=== PATIENT | female | born 1945 | race Caucasian/White ===

== ENCOUNTER 2016-03-30 10:30 | Outpatient (RCR) | payer MEDICARE, BC ==
[2015-02-01 14:15] VITALS: BP 113/61
[~2016-03-30 10:30] MED LIST: ACTOS 15MG TAB15 MG PO; ALLERGY RELIEF10 M3 PO; CELEXA20 M1 PO; CRANBERRY1 CAP PO; DIABETIC MED; DIPHENHYDRAMINE25 MG PO; FLOMAX; HYDROCHLOR50 MG PO; LISINOPRIL10 MG PO; MECLIZINE25 MG PO; PIOGLITAZONE15 MG PO; PRILOSEC 20MG20 MG PO; PRILOSEC10 MG PO; ULTRAM50 MG PO; VIBRAMYCIN100 MG PO; VITAMIN D PO; VITAMIN D32000 I1 PO; XANAX1 M1 PO; XANAX1 MG PO; [UNRECOGNIZED DRUG - OTHER] PO
[2016-06-26] MEDS ORDERED: CYCLOBENZAPRINE10 M1 PO (20:46)
[2016-06-26] MEDS ORDERED: ACETAMINOPHEN-H1 TA2 PO (20:55)
[2016-06-26] MEDS ORDERED: LOPRESSOR 225 MG/TAB PO (20:56)
[2016-06-26] MEDS ORDERED: CLOPIDOGREL75 M1 PO (20:56)
[2016-06-26] MEDS ORDERED: PIOGLITAZONE HC30 MG PO (20:57)
[2016-06-26] MEDS ORDERED: FUROSEMIDE20 MG PO (20:57)
[2016-06-26] MEDS ORDERED: OMEPRAZOLE D/R20 MG PO (20:58)
[2016-06-26] MEDS ORDERED: FLOMAX 0.40.4 MG/CAP PO (20:58)
[2016-06-26] MEDS ORDERED: ALPRAZOLAM1 MG PO (20:59)
[2016-06-26] MEDS ORDERED: NITROGLYCERIN0.4 M1 SL (21:00)
[2016-06-26] MEDS ORDERED: LISINOPRIL5 MG PO (21:01)
[2016-06-26] MEDS ORDERED: CELEXA 20MG20 MG/TA1 PO (21:01)
[2016-06-26] MEDS ORDERED: MECLIZINE PO (21:05)
== END 2016-05-17 09:22 | disposition home or self-care (01) ==
LOC: PT 10:30
DX: M75.41 Impingement syndrome of right shoulder (principal)

== ENCOUNTER → 2016-04-17 | Outpatient (CLI) | payer MEDICARE, BC ==
[~2016-04-17] MED LIST changes: +ACETAMINOPHEN-H1 TA2 PO; +ALPRAZOLAM1 MG PO; +ASPIRIN 32325 MG/TAB PO; +ATORVASTATIN CA40 MG PO; +CELEXA 20MG20 MG/TA1 PO; +CLOPIDOGREL PO; +CLOPIDOGREL75 M1 PO; +CRANBERRY450 MG PO; +CYCLOBENZAPRINE10 M1 PO; +FERROUS SU325 MG/TAB PO; +FLOMAX 0.40.4 MG/CAP PO; +FUROSEMIDE20 MG PO; +LISINOPRIL5 MG PO; +LOPRESSOR 225 MG/TAB PO; +MACROBID 100 M100 MG PO; +MECLIZINE PO; +NATURE'S BOUNTY1 TAB PO; +NITROGLYCERIN0.4 M1 SL; +OMEPRAZOLE D/R20 MG PO; +PIOGLITAZONE HC30 MG PO
== END ==
LOC: LAB 10:55
DX: N76.0 Acute vaginitis (principal)
CPT/HCPCS: Q0111

== ENCOUNTER → 2016-05-15 | Outpatient (CLI) | payer MEDICARE, BC | LOC: LAB 09:03 | DX: N30.01 Acute cystitis with hematuria (principal) ==

== ENCOUNTER → 2016-06-09 | Outpatient (CLI) | payer MEDICARE, BC | LOC: LAB 09:53 | DX: R30.0 Dysuria (principal) ==

== ENCOUNTER → 2016-06-26 | Outpatient (CLI) | payer MEDICARE, BC ==
[2016-06-26 13:40] VITALS: BP 115/62
== END ==
LOC: AMSURD 13:12
DX: Z01.818 Encounter for other preprocedural examination (principal); M25.561 Pain in right knee

== ENCOUNTER → 2016-06-29 | Outpatient (CLI) | payer MEDICARE, BC | LOC: LAB 11:50 | DX: E11.9 Type 2 diabetes mellitus without complications (principal); E55.9 Vitamin D deficiency, unspecified; I25.10 Atherosclerotic heart disease of native coronary artery without angina pectoris; G47.33 Obstructive sleep apnea (adult) (pediatric); M17.9 Osteoarthritis of knee, unspecified ==

== ENCOUNTER → 2016-07-31 | Outpatient (CLI) | payer MEDICARE, BC ==
[2016-06-26 13:40] VITALS: BP 115/62
== END ==
LOC: PT 08:05

== ENCOUNTER → 2016-08-01 | Outpatient (CLI) | payer MEDICARE, BC ==
[2016-06-26 13:40] VITALS: BP 115/62
== END ==
LOC: LAB 09:08
DX: R30.0 Dysuria (principal)

== ENCOUNTER → 2016-08-08 | Outpatient (CLI) | payer MEDICARE, BC ==
[2016-06-26 13:40] VITALS: BP 115/62
== END ==
LOC: RAD 09:38 → LAB 09:38
DX: Z01.811 Encounter for preprocedural respiratory examination (principal); Z01.812 Encounter for preprocedural laboratory examination; M17.0 Bilateral primary osteoarthritis of knee; Z01.818 Encounter for other preprocedural examination

== ENCOUNTER 2016-08-18 16:47 | Inpatient (IN) | payer MEDICARE, BC ==
[~2016-08-18] VITALS: Ht 152 cm; Wt 96.0 kg
[~2016-08-18 16:47] MED LIST changes: -ASPIRIN 32325 MG/TAB PO; -ATORVASTATIN CA40 MG PO; -CLOPIDOGREL PO; -CRANBERRY450 MG PO; -FERROUS SU325 MG/TAB PO; -MACROBID 100 M100 MG PO; -NATURE'S BOUNTY1 TAB PO
[2016-08-20] MEDS ORDERED: CRANBERRY450 MG PO (15:03)
[2016-08-20 15:04] VITALS: BP 163/82
[2016-08-20] MEDS ORDERED: NATURE'S BOUNTY1 TAB PO (15:04)
[2016-08-20] MEDS ORDERED: ATORVASTATIN CA40 MG PO (15:06)
[2016-08-20] MEDS ORDERED: MACROBID 100 M100 MG PO (15:08)
[2016-08-20 18:19] VITALS: BP 144/80
[2016-08-21 06:20] VITALS: BP 145/78
[2016-08-21 06:31] VITALS: BP 145/78
[2016-08-21 18:07] VITALS: BP 135/72
[2016-08-22 06:24] VITALS: BP 135/75
[2016-08-22 18:39] VITALS: BP 151/79
[2016-08-23 06:20] VITALS: BP 151/73
[2016-08-23 18:09] VITALS: BP 142/68
[2016-08-24 06:19] VITALS: BP 136/78
[2016-08-24 18:08] VITALS: BP 143/73
[2016-08-25 06:20] VITALS: BP 130/70
[2016-08-25] MEDS ORDERED: FLOMAX 0.40.4 MG/CAP PO (11:34)
[2016-08-25] MEDS ORDERED: FERROUS SU325 MG/TAB PO (11:35)
[2016-08-25] MEDS ORDERED: CLOPIDOGREL PO (11:36)
[2016-08-25] MEDS ORDERED: ASPIRIN 32325 MG/TAB PO (11:37)
[2016-08-25] MEDS ORDERED: ACETAMINOPHEN-H1 TA2 PO (11:38)
[2016-08-25 18:00] VITALS: BP 129/59
[2016-08-26 06:20] VITALS: BP 124/77
[2016-08-26 18:37] VITALS: BP 165/81
[2016-08-27 06:05] VITALS: BP 119/57
== END 2016-08-27 08:30 | disposition home health service (06) | DRG 560 ==
LOC: MED/SURG 16:47
PROVIDERS: ADMIT Family Medicine
DX: Z47.1 Aftercare following joint replacement surgery (principal); T81.31XD Disruption of external operation (surgical) wound, not elsewhere classified, subsequent encounter; Z96.651 Presence of right artificial knee joint; D62 Acute posthemorrhagic anemia; N39.0 Urinary tract infection, site not specified; E87.1 Hypo-osmolality and hyponatremia; E11.9 Type 2 diabetes mellitus without complications; R53.81 Other malaise; W06.XXXD Fall from bed, subsequent encounter
CPT/HCPCS: A4500; J7512

== ENCOUNTER → 2016-09-07 | Outpatient (CLI) | payer MEDICARE, BC ==
[2016-08-27 06:05] VITALS: BP 119/57
[~2016-09-07] MED LIST changes: +ASPIRIN 32325 MG/TAB PO; +ATORVASTATIN CA40 MG PO; +CLOPIDOGREL PO; +CRANBERRY450 MG PO; +FERROUS SU325 MG/TAB PO; +MACROBID 100 M100 MG PO; +NATURE'S BOUNTY1 TAB PO
== END ==
LOC: LAB 09:23
DX: I10 Essential (primary) hypertension (principal)

== ENCOUNTER 2016-10-04 14:00 | Outpatient (RCR) | payer MEDICARE, BC | END 2016-10-09 15:43 | disposition home or self-care (01) | LOC: PT 14:00 | DX: Z47.1 Aftercare following joint replacement surgery (principal); Z96.651 Presence of right artificial knee joint ==

== ENCOUNTER → 2016-10-30 | Outpatient (CLI) | payer MEDICARE, BC | LOC: LAB 10:15 | DX: R20.2 Paresthesia of skin (principal); E11.9 Type 2 diabetes mellitus without complications ==

== ENCOUNTER → 2016-11-03 | Outpatient (CLI) | payer MEDICARE, BC | LOC: LAB 09:47 | DX: E11.9 Type 2 diabetes mellitus without complications (principal); R20.2 Paresthesia of skin ==

== ENCOUNTER → 2017-01-30 | Outpatient (CLI) | payer MEDICARE, BC ==
[~2017-01-30] MED LIST changes: +COLACE100 M1 PO; +PROTONIX20 M1 PO
[2017-01-30 14:40] LABS: CLUE CELLS PRESENT (Not Observd)
[2017-01-30 14:58] LABS: URINE APPEARANCE CLEAR; URINE COLOR YELLOW
[2017-01-30 14:59] LABS: PH-URINE 5.5 (5.0 - 8.0); URINE BILIRUBIN NEGATIVE (NEGATIVE); URINE BLOOD NEGATIVE (NEGATIVE); URINE GLUCOSE NEGATIVE (NEGATIVE); URINE KETONE NEGATIVE (NEGATIVE); URINE LEUKOCYTE ESTERASE NEGATIVE (NEGATIVE); URINE NITRATE NEGATIVE (NEGATIVE); URINE PROTEIN(semi-quant) NEGATIVE (NEGATIVE); URINE UROBILINOGEN NORMAL (NORMAL)
== END ==
LOC: LAB 14:27
PROVIDERS: Nurse Practitioner Family
DX: R39.15 Urgency of urination (principal); N95.2 Postmenopausal atrophic vaginitis
CPT/HCPCS: Q0111

== ENCOUNTER 2017-02-12 09:50 | Emergency (ER) | payer MEDICARE, BC ==
[~2017-02-12] VITALS: Ht 154.9 cm; Wt 100.8 kg
[~2017-02-12 09:50] MED LIST changes: -COLACE100 M1 PO; -PROTONIX20 M1 PO
[2017-02-12] MEDS ORDERED: ALPRAZOLAM1 MG PO (10:33)
[2017-02-12] MEDS ORDERED: PROTONIX20 M1 PO (10:34)
[2017-02-12] MEDS ORDERED: COLACE100 M1 PO (10:35)
[2017-02-12 10:42] LABS: ALBUMIN 3.4 g/dL (3.5-5.0); BUN/CREATININE RATIO 22.9 (6.0-26.0); POTASSIUM 4.7 mmol/L (3.6-5.0); TOTAL BILIRUBIN 0.6 mg/dL (0.2-1.3); TOTAL PROTEIN 6.2 g/dL (6.3-8.2)
[2017-02-12 10:50] LABS: CKMB ISOENZYME 2.3 ng/mL (0.6-3.5)
[2017-02-12 10:55] LABS: TROPONIN-I < 0.03 ng/mL (0.00-0.06)
[2017-02-12 11:08] LABS: URINE APPEARANCE CLEAR; URINE BILIRUBIN NEGATIVE (NEGATIVE); URINE BLOOD NEGATIVE (NEGATIVE); URINE COLOR YELLOW; URINE GLUCOSE NEGATIVE (NEGATIVE); URINE KETONE NEGATIVE (NEGATIVE); URINE LEUKOCYTE ESTERASE NEGATIVE (NEGATIVE); URINE MUCUS PRESENT (NOT PRESENT); URINE NITRATE NEGATIVE (NEGATIVE); URINE PROTEIN(semi-quant) NEGATIVE (NEGATIVE); URINE UROBILINOGEN NORMAL (NORMAL); URINE WBC 0-1 /hpf (0-3)
[2017-02-12 11:16] LABS: EOS # 0.2 (0.04-0.40); EOS % 4.5 % (1.0-5.0); HEMATOCRIT 35.5 % (37.0-47.0); LYMPH# 1.2 (1.50-4.00); MEAN CELL VOLUME 96 fl (78-100); MEAN CORPUSCULAR HEMOGLOBIN 30 pg (27-31); MEAN CORPUSCULAR HGB CONC 31 g/dL (33-37); MEAN PLATELET VOLUME 10.6 fl (7.4-10.4); MONO # 0.4 (0.20-0.80); NEU # 2.7 (1.40-6.50); PLATELET COUNT 193 K/mm3 (130-400); RED BLOOD COUNT 3.71 M/mm3 (4.10-5.30); RED CELL DISTRIBUTION WIDTH 14.1 % (11.5-14.5); WHITE BLOOD COUNT 4.5 K/mm3 (4.8-10.8)
[2017-02-12 16:41] VITALS: BP 135/74
== END 2017-02-12 16:40 | disposition home or self-care (01) ==
LOC: ED 09:50
PROVIDERS: Nurse Practitioner Primary Care
DX: F43.9 Reaction to severe stress, unspecified (principal); R53.83 Other fatigue; I11.0 Hypertensive heart disease with heart failure; I50.9 Heart failure, unspecified; K21.9 Gastro-esophageal reflux disease without esophagitis; N39.0 Urinary tract infection, site not specified; R29.6 Repeated falls; Z95.5 Presence of coronary angioplasty implant and graft; Z96.653 Presence of artificial knee joint, bilateral; Z98.1 Arthrodesis status; Z79.02 Long term (current) use of antithrombotics/antiplatelets; Z79.82 Long term (current) use of aspirin; Z88.5 Allergy status to narcotic agent; Z88.2 Allergy status to sulfonamides
CPT/HCPCS: A4353; A9585

== ENCOUNTER → 2017-04-16 | Outpatient (CLI) | payer MEDICARE, BC ==
[~2017-04-16] MED LIST changes: +COLACE100 M1 PO; +PROTONIX20 M1 PO
[2017-04-16 10:17] LABS: HEMATOCRIT 37.8 % (37.0-47.0); HEMOGLOBIN 11.5 g/dL (12.5-16.0); MEAN CELL VOLUME 94 fl (78-100); MEAN CORPUSCULAR HEMOGLOBIN 29 pg (27-31); MEAN CORPUSCULAR HGB CONC 30 g/dL (33-37); MEAN PLATELET VOLUME 10.6 fl (7.4-10.4); PLATELET COUNT 167 K/mm3 (130-400); RED BLOOD COUNT 4.03 M/mm3 (4.10-5.30); RED CELL DISTRIBUTION WIDTH 13.6 % (11.5-14.5); WHITE BLOOD COUNT 3.6 K/mm3 (4.8-10.8)
[2017-04-16 11:21] LABS: BUN/CREATININE RATIO 30.3 (6.0-26.0); CALCIUM 9.3 mg/dL (8.4-10.2); POTASSIUM 4.4 mmol/L (3.6-5.0); TOTAL BILIRUBIN 0.5 mg/dL (0.2-1.3); TOTAL PROTEIN 6.9 g/dL (6.3-8.2)
[2017-04-16 11:54] LABS: NEUTROPHILS 51 % (42-75)
[2017-04-16 11:55] LABS: ERYTHROCYTE SEDIMENTATION RATE 17 mm/hr (0-30); LYMPHOCYTE 38 % (20-51); MONOCYTE 8 % (3-10)
== END ==
LOC: LAB 09:47 → RAD 09:47
PROVIDERS: Internal Medicine
DX: M25.552 Pain in left hip (principal); M46.1 Sacroiliitis, not elsewhere classified; Z88.2 Allergy status to sulfonamides

== ENCOUNTER 2017-06-05 13:00 | Outpatient (RCR) | payer MEDICARE, BC | END 2017-06-05 13:30 | disposition home or self-care (01) | LOC: PT 13:00 | DX: M76.02 Gluteal tendinitis, left hip (principal); M70.62 Trochanteric bursitis, left hip; Z88.2 Allergy status to sulfonamides ==

== ENCOUNTER → 2017-11-09 | Outpatient (CLI) | payer MEDICARE, BC ==
[2017-11-09 10:14] LABS: CALCIUM 9.4 mg/dL (8.4-10.2); POTASSIUM 3.9 mmol/L (3.6-5.0)
== END ==
LOC: LAB 09:35
PROVIDERS: Nurse Practitioner Family
DX: E11.9 Type 2 diabetes mellitus without complications (principal)

== ENCOUNTER → 2018-01-28 | Outpatient (CLI) | payer MEDICARE, BC ==
[2018-01-28 09:55] LABS: EOS # 0.2 (0.04-0.40); EOS % 3.5 % (1.0-5.0); HEMATOCRIT 41.2 % (37.0-47.0); HEMOGLOBIN 13.1 g/dL (12.5-16.0); LYMPH# 1.4 (1.50-4.00); MEAN CELL VOLUME 95 fl (78-100); MEAN CORPUSCULAR HEMOGLOBIN 30 pg (27-31); MEAN CORPUSCULAR HGB CONC 32 g/dL (33-37); MEAN PLATELET VOLUME 10.3 fl (7.4-10.4); MONO # 0.4 (0.20-0.80); NEU # 2.3 (1.40-6.50); PLATELET COUNT 195 K/mm3 (130-400); RED BLOOD COUNT 4.35 M/mm3 (4.10-5.30); WHITE BLOOD COUNT 4.3 K/mm3 (4.8-10.8)
[2018-01-28 10:07] LABS: ALBUMIN 4.5 g/dL (3.5-5.0); CALCIUM 9.7 mg/dL (8.4-10.2); POTASSIUM 4.3 mmol/L (3.6-5.0); TOTAL BILIRUBIN 0.7 mg/dL (0.2-1.3); TOTAL PROTEIN 7.8 g/dL (6.3-8.2)
[2018-01-28 10:33] LABS: PH-URINE 6.5 (5.0 - 8.0); URINE APPEARANCE CLEAR; URINE BILIRUBIN NEGATIVE (NEGATIVE); URINE COLOR YELLOW; URINE GLUCOSE NEGATIVE (NEGATIVE); URINE KETONE NEGATIVE (NEGATIVE); URINE NITRATE NEGATIVE (NEGATIVE); URINE PROTEIN(semi-quant) NEGATIVE (NEGATIVE); URINE UROBILINOGEN NORMAL (NORMAL)
[2018-01-28 10:34] LABS: URINE BLOOD NEGATIVE (NEGATIVE); URINE LEUKOCYTE ESTERASE 1+ (NEGATIVE); URINE MUCUS PRESENT (NOT PRESENT)
[2018-01-28 11:00] LABS: ERYTHROCYTE SEDIMENTATION RATE 23 mm/hr (0-30)
[2018-01-29 03:05] LABS: CREATININE OTHER SOURCE 64 mg/dL (())
== END ==
LOC: LAB 09:27
PROVIDERS: Internal Medicine
DX: Z12.11 Encounter for screening for malignant neoplasm of colon (principal); I25.10 Atherosclerotic heart disease of native coronary artery without angina pectoris; E11.9 Type 2 diabetes mellitus without complications; I27.20 Pulmonary hypertension, unspecified; G62.9 Polyneuropathy, unspecified; M85.80 Other specified disorders of bone density and structure, unspecified site

== ENCOUNTER → 2018-02-06 | Outpatient (CLI) | payer MEDICARE, BC | LOC: MAMMO 09:14 | DX: Z12.31 Encounter for screening mammogram for malignant neoplasm of breast (principal) ==

== ENCOUNTER → 2018-02-06 | Outpatient (CLI) | payer MEDICARE, BC | LOC: RAD 09:14 → MAMMO 10:00 → RAD 10:00 | DX: M85.89 Other specified disorders of bone density and structure, multiple sites (principal) ==

== ENCOUNTER 2018-02-11 13:00 | Outpatient (RCR) | payer MEDICARE, BC | END 2018-05-06 | disposition home or self-care (01) | LOC: PT | DX: S16.1XXD Strain of muscle, fascia and tendon at neck level, subsequent encounter (principal); S46.912D Strain of unspecified muscle, fascia and tendon at shoulder and upper arm level, left arm, subsequent encounter; S46.911D Strain of unspecified muscle, fascia and tendon at shoulder and upper arm level, right arm, subsequent encounter; R25.2 Cramp and spasm | CPT/HCPCS: G8985-GP ==

== ENCOUNTER → 2018-04-22 | Outpatient (CLI) | payer MEDICARE, BC ==
[2018-04-22 09:04] LABS: EOS # 0.2 (0.04-0.40); EOS % 3.2 % (1.0-5.0); HEMATOCRIT 39.9 % (37.0-47.0); HEMOGLOBIN 12.6 g/dL (12.5-16.0); LYMPH# 1.3 (1.50-4.00); MEAN CELL VOLUME 92 fl (78-100); MEAN CORPUSCULAR HEMOGLOBIN 29 pg (27-31); MEAN CORPUSCULAR HGB CONC 32 g/dL (33-37); MEAN PLATELET VOLUME 10.3 fl (7.4-10.4); MONO # 0.6 (0.20-0.80); NEU # 3.8 (1.40-6.50); PLATELET COUNT 218 K/mm3 (130-400); RED BLOOD COUNT 4.33 M/mm3 (4.10-5.30); WHITE BLOOD COUNT 5.9 K/mm3 (4.8-10.8)
[2018-04-22 09:20] LABS: ALBUMIN 4.3 g/dL (3.5-5.0); CALCIUM 9.8 mg/dL (8.4-10.2); POTASSIUM 4.1 mmol/L (3.6-5.0); TOTAL BILIRUBIN 0.9 mg/dL (0.2-1.3); TOTAL PROTEIN 7.6 g/dL (6.3-8.2)
== END ==
LOC: LAB 08:50
PROVIDERS: Internal Medicine
DX: E11.9 Type 2 diabetes mellitus without complications (principal)

== ENCOUNTER → 2018-05-21 | Outpatient (CLI) | payer MEDICARE, BC | LOC: RAD 09:22 | DX: M47.812 Spondylosis without myelopathy or radiculopathy, cervical region (principal); Z98.1 Arthrodesis status; Z96.7 Presence of other bone and tendon implants ==

== ENCOUNTER → 2018-05-22 | Outpatient (CLI) | payer MEDICARE, BC | LOC: RAD 07:50 | DX: M50.31 Other cervical disc degeneration, high cervical region (principal); M50.023 Cervical disc disorder at C6-C7 level with myelopathy; M54.12 Radiculopathy, cervical region; M48.02 Spinal stenosis, cervical region ==

== ENCOUNTER 2018-06-12 08:29 | Outpatient (RCR) | payer MEDICARE, BC | END 2018-06-21 15:24 | LOC: OPPGERO 08:29 | DX: F33.1 Major depressive disorder, recurrent, moderate (principal); F41.9 Anxiety disorder, unspecified; I27.0 Primary pulmonary hypertension; I25.10 Atherosclerotic heart disease of native coronary artery without angina pectoris; G47.33 Obstructive sleep apnea (adult) (pediatric); E11.9 Type 2 diabetes mellitus without complications; K21.9 Gastro-esophageal reflux disease without esophagitis; K58.9 Irritable bowel syndrome, unspecified ==

== ENCOUNTER 2018-06-12 13:45 | Outpatient (RCR) | payer MEDICARE, BC | END 2018-06-12 14:15 | disposition home or self-care (01) | LOC: PT 13:45 | DX: M48.02 Spinal stenosis, cervical region (principal); M54.12 Radiculopathy, cervical region ==

== ENCOUNTER 2018-06-24 09:37 | Outpatient (RCR) | payer MEDICARE, BC | END 2018-07-23 14:40 | LOC: OPPGERO 09:37 | DX: F33.1 Major depressive disorder, recurrent, moderate (principal); F41.9 Anxiety disorder, unspecified; I27.20 Pulmonary hypertension, unspecified; I25.10 Atherosclerotic heart disease of native coronary artery without angina pectoris; E11.42 Type 2 diabetes mellitus with diabetic polyneuropathy ==

== ENCOUNTER → 2018-07-16 | Outpatient (CLI) | payer MEDICARE, BC ==
[2018-07-16 10:06] LABS: ALBUMIN 4.3 g/dL (3.5-5.0); CALCIUM 9.6 mg/dL (8.4-10.2); POTASSIUM 4.1 mmol/L (3.6-5.0); TOTAL BILIRUBIN 0.6 mg/dL (0.2-1.3); TOTAL PROTEIN 7.3 g/dL (6.3-8.2)
[2018-07-16 10:07] LABS: EOS # 0.1 (0.04-0.40); EOS % 1.6 % (1.0-5.0); HEMATOCRIT 40.1 % (37.0-47.0); HEMOGLOBIN 12.6 g/dL (12.5-16.0); LYMPH# 1.2 (1.50-4.00); MEAN CELL VOLUME 94 fl (78-100); MEAN CORPUSCULAR HEMOGLOBIN 30 pg (27-31); MEAN CORPUSCULAR HGB CONC 31 g/dL (33-37); MEAN PLATELET VOLUME 10.1 fl (7.4-10.4); MONO # 0.4 (0.20-0.80); NEU # 2.6 (1.40-6.50); PLATELET COUNT 194 K/mm3 (130-400); RED BLOOD COUNT 4.26 M/mm3 (4.10-5.30); RED CELL DISTRIBUTION WIDTH 14.1 % (11.5-14.5); WHITE BLOOD COUNT 4.3 K/mm3 (4.8-10.8)
== END ==
LOC: LAB 09:27
PROVIDERS: Internal Medicine
DX: E11.9 Type 2 diabetes mellitus without complications (principal)

== ENCOUNTER 2018-07-24 08:53 | Outpatient (RCR) | payer MEDICARE, BC | END 2018-08-23 13:33 | LOC: OPPGERO 08:53 | DX: F33.1 Major depressive disorder, recurrent, moderate (principal); F41.9 Anxiety disorder, unspecified; K21.9 Gastro-esophageal reflux disease without esophagitis; I27.20 Pulmonary hypertension, unspecified; I25.10 Atherosclerotic heart disease of native coronary artery without angina pectoris; E11.42 Type 2 diabetes mellitus with diabetic polyneuropathy ==

== ENCOUNTER → 2018-08-08 | Outpatient (CLI) | payer MEDICARE, BC | LOC: LAB 10:02 | DX: N39.0 Urinary tract infection, site not specified (principal) ==

== ENCOUNTER 2018-08-26 09:16 | Outpatient (RCR) | payer MEDICARE, BC | END 2018-09-20 14:44 | LOC: OPPGERO 09:16 | DX: F33.1 Major depressive disorder, recurrent, moderate (principal); F41.9 Anxiety disorder, unspecified; I25.10 Atherosclerotic heart disease of native coronary artery without angina pectoris; K21.9 Gastro-esophageal reflux disease without esophagitis; E11.40 Type 2 diabetes mellitus with diabetic neuropathy, unspecified ==

== ENCOUNTER 2018-09-23 09:41 | Outpatient (RCR) | payer MEDICARE, BC | END 2018-10-23 17:26 | LOC: OPPGERO 09:41 | DX: F33.1 Major depressive disorder, recurrent, moderate (principal); F41.9 Anxiety disorder, unspecified; I10 Essential (primary) hypertension; I27.20 Pulmonary hypertension, unspecified; I25.10 Atherosclerotic heart disease of native coronary artery without angina pectoris; E11.9 Type 2 diabetes mellitus without complications; K21.9 Gastro-esophageal reflux disease without esophagitis; E11.42 Type 2 diabetes mellitus with diabetic polyneuropathy; K58.9 Irritable bowel syndrome, unspecified ==

== ENCOUNTER → 2018-10-18 | Outpatient (CLI) | payer MEDICARE, BC ==
[2018-10-18 12:55] LABS: EOS # 0.1 (0.04-0.40); HEMATOCRIT 39.5 % (37.0-47.0); HEMOGLOBIN 12.7 g/dL (12.5-16.0); LYMPH# 1.1 (1.50-4.00); MEAN CELL VOLUME 95 fl (78-100); MEAN CORPUSCULAR HEMOGLOBIN 31 pg (27-31); MEAN CORPUSCULAR HGB CONC 32 g/dL (33-37); MEAN PLATELET VOLUME 10.1 fl (7.4-10.4); MONO # 0.3 (0.20-0.80); PLATELET COUNT 190 K/mm3 (130-400); RED BLOOD COUNT 4.17 M/mm3 (4.10-5.30); RED CELL DISTRIBUTION WIDTH 13.3 % (11.5-14.5); WHITE BLOOD COUNT 3.4 K/mm3 (4.8-10.8)
[2018-10-18 13:39] LABS: POTASSIUM 4.1 mmol/L (3.5-5.1)
[2018-10-18 13:41] LABS: CALCIUM 9.7 mg/dL (8.3-10.5)
[2018-10-18 13:44] LABS: TOTAL BILIRUBIN 0.4 mg/dL (0.2-1.2)
[2018-10-18 14:22] LABS: ERYTHROCYTE SEDIMENTATION RATE 23 mm/hr (0-30)
== END ==
LOC: LAB 12:39
PROVIDERS: Internal Medicine
DX: E11.9 Type 2 diabetes mellitus without complications (principal); I10 Essential (primary) hypertension; I25.10 Atherosclerotic heart disease of native coronary artery without angina pectoris

== ENCOUNTER 2018-10-24 09:32 | Outpatient (RCR) | payer MEDICARE, BC | END 2018-11-22 13:06 | LOC: OPPGERO 09:32 | DX: F33.41 Major depressive disorder, recurrent, in partial remission (principal); F33.1 Major depressive disorder, recurrent, moderate; F41.9 Anxiety disorder, unspecified; I27.20 Pulmonary hypertension, unspecified; I25.10 Atherosclerotic heart disease of native coronary artery without angina pectoris; E11.9 Type 2 diabetes mellitus without complications; K21.9 Gastro-esophageal reflux disease without esophagitis; E11.42 Type 2 diabetes mellitus with diabetic polyneuropathy; Z79.82 Long term (current) use of aspirin; Z79.899 Other long term (current) drug therapy ==

== ENCOUNTER → 2018-12-03 | Outpatient (CLI) | payer MEDICARE, BC ==
[2018-12-03 10:02] LABS: URINE APPEARANCE HAZY; URINE BILIRUBIN NEGATIVE (NEGATIVE); URINE BLOOD NEGATIVE (NEGATIVE); URINE COLOR YELLOW; URINE GLUCOSE NEGATIVE (NEGATIVE); URINE KETONE NEGATIVE (NEGATIVE); URINE LEUKOCYTE ESTERASE TRACE (NEGATIVE); URINE MUCUS PRESENT (NOT PRESENT); URINE NITRATE NEGATIVE (NEGATIVE); URINE PROTEIN(semi-quant) NEGATIVE (NEGATIVE); URINE UROBILINOGEN NORMAL (NORMAL)
== END ==
LOC: LAB 09:31
PROVIDERS: Internal Medicine
DX: N30.00 Acute cystitis without hematuria (principal)

== ENCOUNTER → 2018-12-24 | Outpatient (CLI) | payer MEDICARE, BC ==
[2018-12-24 10:20] LABS: URINE APPEARANCE CLEAR; URINE BILIRUBIN NEGATIVE (NEGATIVE); URINE BLOOD NEGATIVE (NEGATIVE); URINE COLOR YELLOW; URINE GLUCOSE NEGATIVE (NEGATIVE); URINE KETONE NEGATIVE (NEGATIVE); URINE LEUKOCYTE ESTERASE 1+ (NEGATIVE); URINE NITRATE NEGATIVE (NEGATIVE); URINE PROTEIN(semi-quant) NEGATIVE (NEGATIVE); URINE UROBILINOGEN NORMAL (NORMAL)
== END ==
LOC: LAB 09:24
PROVIDERS: Internal Medicine
DX: N30.00 Acute cystitis without hematuria (principal)

== ENCOUNTER → 2019-01-15 | Outpatient (CLI) | payer MEDICARE, BC | LOC: LAB 14:33 | DX: R30.0 Dysuria (principal) ==

== ENCOUNTER → 2019-01-28 | Outpatient (CLI) | payer MEDICARE, BC ==
[2019-01-28 10:47] LABS: URINE APPEARANCE CLOUDY; URINE BILIRUBIN NEGATIVE (NEGATIVE); URINE BLOOD 50 ery/uL (NEGATIVE); URINE COLOR YELLOW; URINE GLUCOSE NEGATIVE (NEGATIVE); URINE KETONE NEGATIVE (NEGATIVE); URINE LEUKOCYTE ESTERASE 2+ (NEGATIVE); URINE NITRATE POSITIVE (NEGATIVE); URINE PROTEIN(semi-quant) TRACE mg/dL (NEGATIVE); URINE UROBILINOGEN NORMAL (NORMAL); URINE WBC >50 /hpf (0-3)
== END ==
LOC: LAB 08:44
PROVIDERS: Internal Medicine
DX: Z01.89 Encounter for other specified special examinations (principal)

== ENCOUNTER → 2019-04-01 | Outpatient (CLI) | payer MEDICARE, BC ==
[2019-04-01 10:10] LABS: EOS # 0.1 (0.04-0.40); EOS % 2.9 % (1.0-5.0); HEMATOCRIT 40.4 % (37.0-47.0); HEMOGLOBIN 12.8 g/dL (12.5-16.0); LYMPH# 1.1 (1.50-4.00); MEAN CELL VOLUME 95 fl (78-100); MEAN CORPUSCULAR HEMOGLOBIN 30 pg (27-31); MEAN CORPUSCULAR HGB CONC 32 g/dL (33-37); MEAN PLATELET VOLUME 10.1 fl (7.4-10.4); MONO # 0.3 (0.20-0.80); NEU # 1.6 (1.40-6.50); PLATELET COUNT 187 K/mm3 (130-400); RED BLOOD COUNT 4.24 M/mm3 (4.10-5.30); RED CELL DISTRIBUTION WIDTH 12.7 % (11.5-14.5); WHITE BLOOD COUNT 3.1 K/mm3 (4.8-10.8)
[2019-04-01 10:18] LABS: POTASSIUM 4.5 mmol/L (3.5-5.1)
[2019-04-01 10:19] LABS: ALBUMIN 4.3 g/dL (3.4-4.8)
[2019-04-01 10:20] LABS: CALCIUM 9.8 mg/dL (8.3-10.5)
[2019-04-01 10:21] LABS: TOTAL PROTEIN 7.4 g/dL (6.2-8.1)
[2019-04-01 10:23] LABS: TOTAL BILIRUBIN 0.5 mg/dL (0.2-1.2)
[2019-04-01 11:17] LABS: ERYTHROCYTE SEDIMENTATION RATE 23 mm/hr (0-30)
== END ==
LOC: LAB 09:55
PROVIDERS: Internal Medicine
DX: E11.42 Type 2 diabetes mellitus with diabetic polyneuropathy (principal); M85.80 Other specified disorders of bone density and structure, unspecified site; M10.9 Gout, unspecified

== ENCOUNTER 2019-05-16 13:29 | Emergency (ER) | payer MEDICARE, BC ==
[~2019-05-16 13:29] MED LIST changes: -LISINOPRIL5 MG PO; +ZESTRIL5 M1 PO
[2019-05-16] MEDS ORDERED: AMLODIPINE BES2.5 MG PO (13:45)
[2019-05-16] MEDS ORDERED: RANOLAZINE ER500 MG PO (13:46)
[2019-05-16] MEDS ORDERED: FLUOXETINE HCL10 MG PO (13:46)
[2019-05-16] MEDS ORDERED: ISOSORBIDE30 MG PO (13:47)
[2019-05-16] MEDS ORDERED: CLOPIDOGREL PO (13:47)
[2019-05-16] MEDS ORDERED: FLOMAX0.4 MG PO (13:49)
[2019-05-16 14:06] LABS: HEMATOCRIT 38.8 % (37.0-47.0); HEMOGLOBIN 12.2 g/dL (12.5-16.0); MEAN CELL VOLUME 94 fl (78-100); MEAN CORPUSCULAR HEMOGLOBIN 30 pg (27-31); MEAN CORPUSCULAR HGB CONC 31 g/dL (33-37); MEAN PLATELET VOLUME 9.9 fl (7.4-10.4); PLATELET COUNT 213 K/mm3 (130-400); RED BLOOD COUNT 4.12 M/mm3 (4.10-5.30); WHITE BLOOD COUNT 6.9 K/mm3 (4.8-10.8)
[2019-05-16 14:25] LABS: ALBUMIN 4.3 g/dL (3.4-4.8)
[2019-05-16 14:26] LABS: SODIUM 137 mmol/L (136-145)
[2019-05-16 14:27] LABS: CALCIUM 9.3 mg/dL (8.3-10.5)
[2019-05-16 14:28] LABS: GLUCOSE 240 mg/dL (65-105); TOTAL PROTEIN 7.4 g/dL (6.2-8.1)
[2019-05-16 14:29] LABS: CARBON DIOXIDE 23 mmol/L (23-31)
[2019-05-16 14:30] LABS: TOTAL BILIRUBIN 0.4 mg/dL (0.2-1.2)
[2019-05-16 14:33] LABS: AST-SGOT 16 U/L (5-34)
[2019-05-16 14:35] LABS: ALT/SGPT 19 U/L (0-55)
[2019-05-16 15:00] LABS: LYMPHOCYTE 14 % (20-51); MONOCYTE 4 % (3-10); NEUTROPHILS 82 % (42-75)
[2019-05-16] MEDS ORDERED: BENADRYL PO (16:09)
[2019-05-16] MEDS ORDERED: BIOTIN2500 MCG (16:09)
[2019-05-16] MEDS ORDERED: TYLENOL EXTRA500 M2 PO (16:09)
[2019-05-16] MEDS ORDERED: CEFDINIR300 MG PO (16:10)
[2019-05-16] MEDS ORDERED: ASPIRIN E.C. 8181 MG PO (16:10)
[2019-05-16] MEDS ORDERED: CRANBERRY450 MG PO (16:10)
[2019-05-16] MEDS ORDERED: GOOD NEIGH100 MG/52 PO (16:11)
[2019-05-16] MEDS ORDERED: MEDROL 4MG DOSPA4 MG PO (16:11)
[2019-05-16] MEDS ORDERED: MASON NATURAL1000 IU PO (16:12)
[2019-05-16] MEDS ORDERED: BIOTIN 800 MCG-1 TAB PO (16:13)
[2019-05-16] MEDS ORDERED: VITAMIN B122500 MC1 (16:14)
[2019-05-16 16:20] LABS: TROPONIN-I < 0.03 ng/mL (<0.030)
[2019-05-16 16:26] LABS: URINE APPEARANCE CLEAR; URINE COLOR YELLOW
[2019-05-16 16:27] LABS: URINE BILIRUBIN NEGATIVE (NEGATIVE); URINE BLOOD TRACE (NEGATIVE); URINE GLUCOSE NEGATIVE (NEGATIVE); URINE KETONE NEGATIVE (NEGATIVE); URINE LEUKOCYTE ESTERASE TRACE (NEGATIVE); URINE NITRATE NEGATIVE (NEGATIVE); URINE PROTEIN(semi-quant) TRACE mg/dL (NEGATIVE); URINE UROBILINOGEN NORMAL (NORMAL); URINE WBC 0-1 /hpf (0-3)
[2019-05-16] MEDS ORDERED: NORCO 325 MG-51 TA1 PO ×3 (16:28→16:35)
[2019-05-16 16:40] VITALS: BP 162/80
[2019-05-16 17:08] LABS: ERYTHROCYTE SEDIMENTATION RATE 39 mm/hr (0-30)
== END 2019-05-16 16:42 | disposition home or self-care (01) ==
LOC: ED 13:29
PROVIDERS: Internal Medicine; Nurse Practitioner Primary Care
DX: J11.1 Influenza due to unidentified influenza virus with other respiratory manifestations (principal); I25.10 Atherosclerotic heart disease of native coronary artery without angina pectoris; E11.9 Type 2 diabetes mellitus without complications; I10 Essential (primary) hypertension; K21.9 Gastro-esophageal reflux disease without esophagitis; Z79.02 Long term (current) use of antithrombotics/antiplatelets; Z79.82 Long term (current) use of aspirin; Z79.84 Long term (current) use of oral hypoglycemic drugs; Z95.5 Presence of coronary angioplasty implant and graft; Z96.653 Presence of artificial knee joint, bilateral

== ENCOUNTER 2019-09-03 09:42 | Outpatient (RCR) | payer MEDICARE, BC ==
[~2019-09-03 09:42] MED LIST changes: +AMLODIPINE BES2.5 MG PO; +ASPIRIN E.C. 8181 MG PO; +BENADRYL PO; +BIOTIN 800 MCG-1 TAB PO; +BIOTIN2500 MCG; +CEFDINIR300 MG PO; +FLOMAX0.4 MG PO; +FLUOXETINE HCL10 MG PO; +GOOD NEIGH100 MG/52 PO; +ISOSORBIDE30 MG PO; +MASON NATURAL1000 IU PO; +MEDROL 4MG DOSPA4 MG PO; +NORCO 325 MG-51 TA1 PO; +RANOLAZINE ER500 MG PO; +TYLENOL EXTRA500 M2 PO; +VITAMIN B122500 MC1
== END 2019-09-23 16:11 ==
LOC: OPPGERO 09:42
DX: F33.1 Major depressive disorder, recurrent, moderate (principal); F41.9 Anxiety disorder, unspecified; M48.00 Spinal stenosis, site unspecified; I27.20 Pulmonary hypertension, unspecified; I25.10 Atherosclerotic heart disease of native coronary artery without angina pectoris; M17.0 Bilateral primary osteoarthritis of knee; K21.9 Gastro-esophageal reflux disease without esophagitis; E11.42 Type 2 diabetes mellitus with diabetic polyneuropathy; K58.9 Irritable bowel syndrome, unspecified; Z79.899 Other long term (current) drug therapy

== ENCOUNTER 2019-09-24 10:46 | Outpatient (RCR) | payer MEDICARE, BC | END 2019-10-24 14:15 | disposition still patient (30) | LOC: OPPGERO 10:46 | DX: F33.1 Major depressive disorder, recurrent, moderate (principal); F41.9 Anxiety disorder, unspecified; M48.00 Spinal stenosis, site unspecified; I27.20 Pulmonary hypertension, unspecified; I25.10 Atherosclerotic heart disease of native coronary artery without angina pectoris; M17.0 Bilateral primary osteoarthritis of knee; K21.9 Gastro-esophageal reflux disease without esophagitis; E11.42 Type 2 diabetes mellitus with diabetic polyneuropathy; K58.9 Irritable bowel syndrome, unspecified; R45.82 Worries; Z79.899 Other long term (current) drug therapy ==

== ENCOUNTER 2019-10-27 09:36 | Outpatient (RCR) | payer MEDICARE, BC | END 2019-11-24 16:17 | disposition home or self-care (01) | LOC: OPPGERO 09:36 | DX: F33.9 Major depressive disorder, recurrent, unspecified (principal); F41.8 Other specified anxiety disorders; I27.20 Pulmonary hypertension, unspecified; Z79.899 Other long term (current) drug therapy ==

== ENCOUNTER → 2019-11-03 | Outpatient (CLI) | payer MEDICARE, BC ==
[2019-11-03 09:48] LABS: EOS # 0.1 (0.04-0.40); EOS % 2.7 % (1.0-5.0); HEMATOCRIT 41.2 % (37.0-47.0); HEMOGLOBIN 13.1 g/dL (12.5-16.0); LYMPH# 1.3 (1.50-4.00); MEAN CELL VOLUME 91 fl (78-100); MEAN CORPUSCULAR HEMOGLOBIN 29 pg (27-31); MEAN CORPUSCULAR HGB CONC 32 g/dL (33-37); MEAN PLATELET VOLUME 9.9 fl (7.4-10.4); MONO # 0.4 (0.20-0.80); NEU # 3.3 (1.40-6.50); PLATELET COUNT 212 K/mm3 (130-400); RED BLOOD COUNT 4.52 M/mm3 (4.10-5.30); RED CELL DISTRIBUTION WIDTH 13.7 % (11.5-14.5); WHITE BLOOD COUNT 5.2 K/mm3 (4.8-10.8)
[2019-11-03 09:54] LABS: POTASSIUM 3.7 mmol/L (3.5-5.1)
[2019-11-03 09:55] LABS: ALBUMIN 4.3 g/dL (3.4-4.8)
[2019-11-03 09:56] LABS: CALCIUM 9.6 mg/dL (8.3-10.5)
[2019-11-03 09:57] LABS: TOTAL PROTEIN 7.7 g/dL (6.2-8.1)
[2019-11-03 09:59] LABS: TOTAL BILIRUBIN 0.6 mg/dL (0.2-1.2)
[2019-11-03 10:04] LABS: MAGNESIUM 1.38 mg/dL (1.60-2.60)
[2019-11-03 11:16] LABS: ERYTHROCYTE SEDIMENTATION RATE 15 mm/hr (0-30)
== END ==
LOC: LAB 09:20
PROVIDERS: Internal Medicine
DX: Z12.11 Encounter for screening for malignant neoplasm of colon (principal); E11.9 Type 2 diabetes mellitus without complications; K90.9 Intestinal malabsorption, unspecified; I10 Essential (primary) hypertension; I27.20 Pulmonary hypertension, unspecified; I25.10 Atherosclerotic heart disease of native coronary artery without angina pectoris; M10.9 Gout, unspecified

== ENCOUNTER → 2019-11-06 | Outpatient (CLI) | payer MEDICARE, BC ==
[2019-11-06 10:31] LABS: URINE COLOR YELLOW
[2019-11-06 10:32] LABS: PH-URINE 5.5 (5.0 - 8.0); URINE APPEARANCE CLEAR; URINE BILIRUBIN NEGATIVE (NEGATIVE); URINE BLOOD NEGATIVE (NEGATIVE); URINE GLUCOSE NEGATIVE (NEGATIVE); URINE KETONE NEGATIVE (NEGATIVE); URINE LEUKOCYTE ESTERASE TRACE (NEGATIVE); URINE MUCUS PRESENT (NOT PRESENT); URINE NITRATE NEGATIVE (NEGATIVE); URINE PROTEIN(semi-quant) TRACE mg/dL (NEGATIVE); URINE UROBILINOGEN NORMAL (NORMAL)
[2019-11-06 22:31] LABS: CREATININE OTHER SOURCE 47 mg/dL (())
== END ==
LOC: LAB 10:07
PROVIDERS: Internal Medicine
DX: Z12.11 Encounter for screening for malignant neoplasm of colon (principal); E11.9 Type 2 diabetes mellitus without complications; I10 Essential (primary) hypertension; I25.10 Atherosclerotic heart disease of native coronary artery without angina pectoris

== ENCOUNTER 2019-11-25 09:47 | Outpatient (RCR) | payer MEDICARE, BC | END 2019-12-24 17:07 | disposition still patient (30) | LOC: OPPGERO 09:47 | DX: F33.1 Major depressive disorder, recurrent, moderate (principal); F41.9 Anxiety disorder, unspecified; M17.0 Bilateral primary osteoarthritis of knee; I27.20 Pulmonary hypertension, unspecified; K21.9 Gastro-esophageal reflux disease without esophagitis; E11.42 Type 2 diabetes mellitus with diabetic polyneuropathy; I25.10 Atherosclerotic heart disease of native coronary artery without angina pectoris; M48.00 Spinal stenosis, site unspecified; I10 Essential (primary) hypertension; Z63.72 Alcoholism and drug addiction in family; Z79.51 Long term (current) use of inhaled steroids; Z79.899 Other long term (current) drug therapy; Z91.410 Personal history of adult physical and sexual abuse ==

== ENCOUNTER 2019-12-25 14:50 | Outpatient (RCR) | payer MEDICARE, BC ==
[~2019-12-25 14:50] MED LIST changes: -MASON NATURAL1000 IU PO; +VITAMIN D31250 MCG PO
== END 2020-01-23 14:31 | disposition still patient (30) ==
LOC: OPPGERO 14:50
DX: F33.41 Major depressive disorder, recurrent, in partial remission (principal); F41.8 Other specified anxiety disorders; M48.00 Spinal stenosis, site unspecified; N39.0 Urinary tract infection, site not specified; I27.20 Pulmonary hypertension, unspecified; I25.10 Atherosclerotic heart disease of native coronary artery without angina pectoris; E11.9 Type 2 diabetes mellitus without complications; K21.9 Gastro-esophageal reflux disease without esophagitis; E11.42 Type 2 diabetes mellitus with diabetic polyneuropathy; Z79.84 Long term (current) use of oral hypoglycemic drugs; Z79.899 Other long term (current) drug therapy

== ENCOUNTER → 2019-12-31 | Outpatient (CLI) | payer MEDICARE, BC ==
[~2019-12-31] MED LIST changes: +CEPHALEXIN500 M1 PO; +FLUOXETINE HCL20 MG PO; +TRAMADOL 50 MG TAB PO
== END ==
LOC: LAB 09:30
DX: N30.01 Acute cystitis with hematuria (principal); R09.81 Nasal congestion

== ENCOUNTER → 2020-01-05 | Outpatient (CLI) | payer MEDICARE, BC ==
[~2020-01-05] MED LIST changes: -CEPHALEXIN500 M1 PO; -FLUOXETINE HCL20 MG PO; +MASON NATURAL1000 IU PO; -TRAMADOL 50 MG TAB PO; -VITAMIN D31250 MCG PO
[2020-01-05 12:27] LABS: BASO # 0.1 (0.02-0.10); EOS # 0.3 (0.04-0.40); EOS % 3.5 % (1.0-5.0); HEMATOCRIT 39.6 % (37.0-47.0); HEMOGLOBIN 12.1 g/dL (12.5-16.0); LYMPH# 1.9 (1.50-4.00); MEAN CELL VOLUME 94 fl (78-100); MEAN CORPUSCULAR HEMOGLOBIN 29 pg (27-31); MEAN CORPUSCULAR HGB CONC 31 g/dL (33-37); MEAN PLATELET VOLUME 9.6 fl (7.4-10.4); MONO # 0.8 (0.20-0.80); NEU # 5.3 (1.40-6.50); PLATELET COUNT 244 K/mm3 (130-400); RED BLOOD COUNT 4.23 M/mm3 (4.10-5.30); WHITE BLOOD COUNT 8.6 K/mm3 (4.8-10.8)
[2020-01-05 12:38] LABS: ALBUMIN 4.3 g/dL (3.4-4.8)
[2020-01-05 12:39] LABS: CALCIUM 9.2 mg/dL (8.3-10.5)
[2020-01-05 12:40] LABS: TOTAL PROTEIN 7.5 g/dL (6.2-8.1)
[2020-01-05 12:42] LABS: TOTAL BILIRUBIN 0.9 mg/dL (0.2-1.2)
[2020-01-05 12:46] LABS: PH-URINE 5.5 (5.0 - 8.0); URINE APPEARANCE HAZY; URINE BILIRUBIN NEGATIVE (NEGATIVE); URINE BLOOD TRACE (NEGATIVE); URINE COLOR YELLOW; URINE GLUCOSE NEGATIVE (NEGATIVE); URINE KETONE NEGATIVE (NEGATIVE); URINE LEUKOCYTE ESTERASE 2+ (NEGATIVE); URINE NITRATE POSITIVE (NEGATIVE); URINE PROTEIN(semi-quant) NEGATIVE (NEGATIVE); URINE UROBILINOGEN NORMAL (NORMAL); URINE WBC >50 /hpf (0-3)
== END ==
LOC: LAB 12:15
PROVIDERS: Internal Medicine
DX: I27.20 Pulmonary hypertension, unspecified (principal); E11.9 Type 2 diabetes mellitus without complications; N30.00 Acute cystitis without hematuria

== ENCOUNTER 2020-01-19 07:46 | Outpatient (RCR) | payer MEDICARE, BC ==
[2020-01-12 20:20] VITALS: BP 140/68
[2020-01-13 08:02] VITALS: BP 147/83
[2020-01-13 19:53] VITALS: BP 156/75
[2020-01-14 07:49] VITALS: BP 159/82
[2020-01-14 19:55] VITALS: BP 191/76
[2020-01-15 08:02] VITALS: BP 134/85
[2020-01-15 20:02] VITALS: BP 154/77
[2020-01-16 08:06] VITALS: BP 143/84
[2020-01-16 20:05] VITALS: BP 159/80
[2020-01-16 20:34] VITALS: BP 146/80
[2020-01-17 08:08] VITALS: BP 147/71
[2020-01-17 19:53] VITALS: BP 155/87
[2020-01-18 08:05] VITALS: BP 145/107
[2020-01-18 20:24] VITALS: BP 146/83
[~2020-01-19] VITALS: Ht 154.9 cm; Wt 90.9 kg
[~2020-01-19 07:46] MED LIST changes: -MASON NATURAL1000 IU PO; +VITAMIN D31250 MCG PO
[2020-01-19 08:03] VITALS: BP 149/85
== END 2020-01-19 12:00 ==
LOC: AMSURD 07:46
DX: E11.9 Type 2 diabetes mellitus without complications (principal); N30.00 Acute cystitis without hematuria
CPT/HCPCS: J0692

== ENCOUNTER → 2020-01-23 | Outpatient (CLI) | payer MEDICARE, BC ==
[2020-01-19 08:03] VITALS: BP 149/85
[2020-01-23 17:14] LABS: D-DIMER 0.86 mg/L FEU (0.15-0.50)
== END ==
LOC: LAB 16:32
PROVIDERS: Internal Medicine Interventional Cardiology
DX: R06.02 Shortness of breath (principal)

== ENCOUNTER → 2020-01-28 | Outpatient (CLI) | payer MEDICARE, BC ==
[2020-01-19 08:03] VITALS: BP 149/85
== END ==
LOC: RAD 10:42
DX: R91.1 Solitary pulmonary nodule (principal); I51.7 Cardiomegaly; I25.10 Atherosclerotic heart disease of native coronary artery without angina pectoris; R79.89 Other specified abnormal findings of blood chemistry
CPT/HCPCS: Q9967

== ENCOUNTER → 2020-02-10 | Outpatient (CLI) | payer MEDICARE, BC ==
[2020-01-19 08:03] VITALS: BP 149/85
== END ==
LOC: MAMMO 09:12
DX: Z12.31 Encounter for screening mammogram for malignant neoplasm of breast (principal)

== ENCOUNTER → 2020-02-18 | Outpatient (CLI) | payer MEDICARE, BC ==
[2020-01-19 08:03] VITALS: BP 149/85
[2020-02-18 09:55] LABS: HEMATOCRIT 39.1 % (37.0-47.0); HEMOGLOBIN 12.1 g/dL (12.5-16.0); MEAN PLATELET VOLUME 9.7 fl (7.4-10.4); RED BLOOD COUNT 4.14 M/mm3 (4.10-5.30); RED CELL DISTRIBUTION WIDTH 13.7 % (11.5-14.5); WHITE BLOOD COUNT 3.7 K/mm3 (4.8-10.8)
[2020-02-18 10:35] LABS: CALCIUM 9.1 mg/dL (8.3-10.5)
== END ==
LOC: LAB 09:31
PROVIDERS: Internal Medicine Interventional Cardiology
DX: Z01.812 Encounter for preprocedural laboratory examination (principal); R06.02 Shortness of breath

== ENCOUNTER → 2020-02-23 | Outpatient (CLI) | payer MEDICARE, BC | LOC: LAB 11:16 | DX: Z01.812 Encounter for preprocedural laboratory examination (principal); R06.02 Shortness of breath; Z20.828 Contact with and (suspected) exposure to other viral communicable diseases ==

== ENCOUNTER → 2020-03-16 | Outpatient (CLI) | payer MEDICARE, BC ==
[~2020-03-16] MED LIST changes: +CEPHALEXIN500 M1 PO; +FLUOXETINE HCL20 MG PO; +TRAMADOL 50 MG TAB PO
== END ==
LOC: LAB 11:23
DX: N39.0 Urinary tract infection, site not specified (principal)

== ENCOUNTER → 2020-03-23 | Outpatient (CLI) | payer MEDICARE, BC ==
[2020-03-22 12:48] VITALS: BP 137/80
[2020-03-23 14:17] LABS: POTASSIUM 3.8 mmol/L (3.5-5.1)
[2020-03-23 14:18] LABS: CALCIUM 9.2 mg/dL (8.3-10.5)
== END ==
LOC: LAB 11:52
PROVIDERS: Internal Medicine
DX: Z01.89 Encounter for other specified special examinations (principal)

== ENCOUNTER 2020-03-24 11:20 | Outpatient (RCR) | payer MEDICARE, BC ==
[2020-03-22 12:45] VITALS: BP 98/68
[2020-03-22 12:48] VITALS: BP 137/80
[2020-03-23 12:06] VITALS: BP 143/71
[~2020-03-24] VITALS: Ht 154.9 cm; Wt 89.6 kg
[2020-03-24 11:35] VITALS: BP 144/69
== END 2020-03-29 | disposition home or self-care (01) ==
LOC: AMSURD
DX: N39.0 Urinary tract infection, site not specified (principal); M25.512 Pain in left shoulder; M54.2 Cervicalgia; H92.02 Otalgia, left ear
CPT/HCPCS: J1580

== ENCOUNTER → 2020-03-27 | Outpatient (CLI) | payer MEDICARE, BC ==
[2020-03-26 20:28] VITALS: BP 165/78
== END ==
LOC: LAB 06:48
DX: N30.00 Acute cystitis without hematuria (principal)

== ENCOUNTER 2020-03-31 19:50 | Outpatient (RCR) | payer MEDICARE, BC ==
[2020-03-25 17:38] VITALS: BP 154/81
[2020-03-25 18:15] VITALS: BP 136/77
--- NOTE | 2020-03-26 11:23 | NUR ---
CALL FROM , REQUESTING TO CHANGE TIME OF PATIENTS INFUSION TO 1999 PER PHARMACY SUGGESTIONS, DOSE CHANGED TO 260MG GENTAMYCIN QD @ 1999 X6 MORE DOSES, ORDERS A GENATMYCIN PEAK LEVEL TO BE DRAWN 10-12 HOURS AFTER TONIGHTS DOSE, PT WILL RETURN TO [facility] IN THE MORNING AT 0700 FOR GENT PEAK LEVEL, LAB NOTIFIED OF LAB ORDER CHANGES REGARDING PEAK LEVEL, PT NOTIFIED AND AGREEABLE VIA PHONE, NO FURTHER NEW ORDERS AT THIS TIME
[2020-03-26 19:55] VITALS: BP 164/66
[2020-03-26 20:28] VITALS: BP 165/78
--- NOTE | 2020-03-27 17:13 | NUR ---
Gentamycin peak results not back yet. Unable to reach anyone in [facility] for their guidance. Dr. Guidry notified and order obtained to continue current Gentamycin dose at this time.
--- NOTE | 2020-03-27 17:35 | NUR ---
IV flushes with no resistance or pain. No swelling to site noted. Pt instructed to call if infusion becomes painful or swelling occurs. Verbalizes understandning.
[2020-03-27 17:40] VITALS: BP 137/71
[2020-03-27 18:13] VITALS: BP 135/71
[2020-03-28 17:07] VITALS: BP 127/66
[2020-03-29 17:56] VITALS: BP 119/72
[2020-03-30 20:02] VITALS: BP 157/70
[2020-03-30 20:35] VITALS: BP 137/79
[~2020-03-31] VITALS: Ht 154.9 cm; Wt 89.6 kg
[2020-03-31 20:03] VITALS: BP 148/77
[2020-03-31 20:34] VITALS: BP 154/80
== END 2020-03-31 22:00 | disposition home or self-care (01) ==
LOC: AMSURD
DX: N30.00 Acute cystitis without hematuria (principal)
CPT/HCPCS: J1580

== ENCOUNTER → 2020-04-06 | Outpatient (CLI) | payer MEDICARE, BC ==
[2020-03-31 20:34] VITALS: BP 154/80
== END ==
LOC: RAD 07:50
DX: N30.20 Other chronic cystitis without hematuria (principal)

== ENCOUNTER → 2021-02-04 | Outpatient (CLI) | payer MEDICARE, BC | LOC: RAD 10:51 | DX: R91.1 Solitary pulmonary nodule (principal) ==

== ENCOUNTER 2022-12-08 20:44 | Emergency (ER) | payer MEDICARE, BC ==
[~2022-12-08] VITALS: Wt 90.9 kg
[~2022-12-08 20:44] MED LIST changes: -VITAMIN B122500 MC1; +VITAMIN B122500 MC1 PO
[2022-12-08] MEDS ORDERED: NORVASC 10MG10 MG PO (21:05)
[2022-12-08] MEDS ORDERED: LISINOPRIL20 MG PO (21:07)
[2022-12-08] MEDS ORDERED: ISOSORBIDE MONO60 M2 PO (21:09)
[2022-12-08] MEDS ORDERED: KAPSPARGO SPRIN50 MG PO (21:15)
[2022-12-08] MEDS ORDERED: PROBIOTIC1 EAC2 PO (21:17)
[2022-12-08] MEDS ORDERED: NEURONTIN300 MG/CAP PO (21:18)
[2022-12-08 21:56] LABS: BASO # 0.04 K/mm3 (0.02-0.10); EOS # 0.06 K/mm3 (0.04-0.40); EOS % 0.6 % (1.0-5.0); HEMATOCRIT 41.6 % (37.0-47.0); LYMPH# 1.81 K/mm3 (1.50-4.00); MEAN CELL VOLUME 90 fl (78-100); MEAN CORPUSCULAR HEMOGLOBIN 30 pg (27-31); MEAN CORPUSCULAR HGB CONC 34 g/dL (33-37); MEAN PLATELET VOLUME 10.7 fl (7.4-10.4); MONO # 0.71 K/mm3 (0.20-0.80); NEU # 7.73 K/mm3 (1.40-6.50); PLATELET COUNT 233 K/mm3 (130-400); RED BLOOD COUNT 4.62 M/mm3 (4.10-5.30); RED CELL DISTRIBUTION WIDTH 12.1 % (11.5-14.5); WHITE BLOOD COUNT 10.4 K/mm3 (4.8-10.8)
[2022-12-08 21:59] LABS: ALBUMIN 4.2 g/dL (3.4-4.8)
[2022-12-08 22:02] LABS: TOTAL PROTEIN 7.5 g/dL (6.2-8.1)
[2022-12-08 22:03] LABS: TOTAL BILIRUBIN 0.7 mg/dL (0.2-1.2)
[2022-12-08 22:23] LABS: PH-URINE 5.5 (5.0 - 8.0); URINE APPEARANCE HAZY; URINE BILIRUBIN NEGATIVE (NEGATIVE); URINE BLOOD TRACE (NEGATIVE); URINE COLOR YELLOW; URINE KETONE NEGATIVE (NEGATIVE); URINE LEUKOCYTE ESTERASE TRACE (NEGATIVE); URINE NITRATE NEGATIVE (NEGATIVE); URINE PROTEIN(semi-quant) NEGATIVE (NEGATIVE); URINE UROBILINOGEN NORMAL (NORMAL)
[2022-12-09] MEDS ORDERED: CEPHALEXIN500 M1 PO (00:49)
[2022-12-09 01:07] VITALS: BP 169/81
== END 2022-12-09 01:07 | disposition home or self-care (01) ==
LOC: ED 20:44
PROVIDERS: Family Medicine
DX: R10.12 Left upper quadrant pain (principal); R82.71 Bacteriuria; R82.81 Pyuria; Z88.1 Allergy status to other antibiotic agents; Z88.2 Allergy status to sulfonamides
CPT/HCPCS: J1885; J2270; J7030

== ENCOUNTER 2022-12-25 20:15 | Observation (INO) | payer MEDICARE, BC ==
[~2022-12-25] VITALS: Ht 152.4 cm; Wt 94.0 kg
[~2022-12-25 20:15] MED LIST changes: +ISOSORBIDE MONO60 M2 PO; +KAPSPARGO SPRIN50 MG PO; +LISINOPRIL20 MG PO; +NEURONTIN300 MG/CAP PO; +NORVASC 10MG10 MG PO; +PROBIOTIC1 EAC2 PO
[2022-12-25 20:57] LABS: BASO # 0.02 K/mm3 (0.02-0.10); EOS # 0.27 K/mm3 (0.04-0.40); EOS % 3.4 % (1.0-5.0); HEMATOCRIT 41.3 % (37.0-47.0); HEMOGLOBIN 13.4 g/dL (12.5-16.0); LYMPH# 1.77 K/mm3 (1.50-4.00); MEAN CELL VOLUME 92 fl (78-100); MEAN CORPUSCULAR HEMOGLOBIN 30 pg (27-31); MEAN CORPUSCULAR HGB CONC 32 g/dL (33-37); MEAN PLATELET VOLUME 10.1 fl (7.4-10.4); MONO # 0.91 K/mm3 (0.20-0.80); NEU # 4.85 K/mm3 (1.40-6.50); PLATELET COUNT 225 K/mm3 (130-400); RED BLOOD COUNT 4.48 M/mm3 (4.10-5.30); RED CELL DISTRIBUTION WIDTH 12.4 % (11.5-14.5); WHITE BLOOD COUNT 7.9 K/mm3 (4.8-10.8)
[2022-12-25 21:07] LABS: POTASSIUM 4.3 mmol/L (3.5-5.1)
[2022-12-25 21:08] LABS: CALCIUM 9.4 mg/dL (8.3-10.5)
[2022-12-25 21:09] LABS: TOTAL PROTEIN 7.6 g/dL (6.2-8.1)
[2022-12-25 21:11] LABS: TOTAL BILIRUBIN 0.4 mg/dL (0.2-1.2)
[2022-12-25 21:25] LABS: PH-URINE 5.5 (5.0 - 8.0); URINE APPEARANCE CLOUDY; URINE COLOR YELLOW
[2022-12-25 21:26] LABS: URINE BILIRUBIN NEGATIVE (NEGATIVE); URINE BLOOD 50 ery/uL (NEGATIVE); URINE KETONE NEGATIVE (NEGATIVE); URINE LEUKOCYTE ESTERASE 2+ (NEGATIVE); URINE NITRATE POSITIVE (NEGATIVE); URINE PROTEIN(semi-quant) 2+ (NEGATIVE); URINE UROBILINOGEN NORMAL (NORMAL); URINE WBC >50 /hpf (0-3)
[2022-12-25] MEDS ORDERED: MACROBID 1100 MG/CAP PO (23:11)
[2022-12-25] MEDS ORDERED: METFORMIN ER500 MG PO (23:12)
[2022-12-25 23:23] VITALS: BP 147/72
[2022-12-26 01:19] VITALS: BP 146/56
[2022-12-26 05:41] VITALS: BP 172/75
[2022-12-26 06:26] LABS: BASO # 0.03 K/mm3 (0.02-0.10); EOS # 0.21 K/mm3 (0.04-0.40); EOS % 2.7 % (1.0-5.0); HEMATOCRIT 37.9 % (37.0-47.0); HEMOGLOBIN 12.3 g/dL (12.5-16.0); LYMPH# 1.25 K/mm3 (1.50-4.00); MEAN CELL VOLUME 93 fl (78-100); MEAN CORPUSCULAR HEMOGLOBIN 30 pg (27-31); MEAN CORPUSCULAR HGB CONC 33 g/dL (33-37); MEAN PLATELET VOLUME 10.2 fl (7.4-10.4); NEU # 5.13 K/mm3 (1.40-6.50); PLATELET COUNT 201 K/mm3 (130-400); RED BLOOD COUNT 4.06 M/mm3 (4.10-5.30); RED CELL DISTRIBUTION WIDTH 12.4 % (11.5-14.5); WHITE BLOOD COUNT 7.7 K/mm3 (4.8-10.8)
[2022-12-26 06:32] LABS: ALBUMIN 3.7 g/dL (3.4-4.8)
[2022-12-26 06:34] LABS: CALCIUM 9.4 mg/dL (8.3-10.5)
[2022-12-26 06:35] LABS: TOTAL PROTEIN 6.9 g/dL (6.2-8.1)
[2022-12-26 06:57] LABS: TOTAL BILIRUBIN 0.4 mg/dL (0.2-1.2)
[2022-12-26 09:42] VITALS: BP 155/82
[2022-12-26 13:51] VITALS: BP 137/76
[2022-12-26 17:25] VITALS: BP 153/74
[2022-12-26 21:29] VITALS: BP 120/69
[2022-12-27 01:50] VITALS: BP 113/68
[2022-12-27 05:59] VITALS: BP 127/68
[2022-12-27 09:57] VITALS: BP 130/77
[2022-12-27 14:33] VITALS: BP 151/74
[2022-12-27 17:07] VITALS: BP 122/73
[2022-12-27 21:48] VITALS: BP 110/61
[2022-12-28 01:38] VITALS: BP 118/67
[2022-12-28 05:33] LABS: BASO # 0.02 K/mm3 (0.02-0.10); EOS # 0.38 K/mm3 (0.04-0.40); EOS % 6.4 % (1.0-5.0); HEMATOCRIT 35.6 % (37.0-47.0); HEMOGLOBIN 11.6 g/dL (12.5-16.0); LYMPH# 1.55 K/mm3 (1.50-4.00); MEAN CELL VOLUME 92 fl (78-100); MEAN CORPUSCULAR HEMOGLOBIN 30 pg (27-31); MEAN CORPUSCULAR HGB CONC 33 g/dL (33-37); MEAN PLATELET VOLUME 9.9 fl (7.4-10.4); MONO # 0.56 K/mm3 (0.20-0.80); NEU # 3.25 K/mm3 (1.40-6.50); PLATELET COUNT 202 K/mm3 (130-400); RED BLOOD COUNT 3.89 M/mm3 (4.10-5.30); RED CELL DISTRIBUTION WIDTH 12.5 % (11.5-14.5); WHITE BLOOD COUNT 5.9 K/mm3 (4.8-10.8)
[2022-12-28 05:42] LABS: POTASSIUM 4.2 mmol/L (3.5-5.1)
[2022-12-28 05:43] LABS: CALCIUM 9.3 mg/dL (8.3-10.5)
[2022-12-28 05:52] VITALS: BP 147/74
[2022-12-28 09:43] VITALS: BP 171/84
[2022-12-29] MEDS ORDERED: MACROBID 100 M100 MG PO (10:20)
[2022-12-29] MEDS ORDERED: MACROBID 1100 MG/CAP PO (10:20)
== END 2022-12-28 13:29 | disposition home or self-care (01) ==
LOC: ED 20:15 → MED/SURG 22:14
PROVIDERS: Nurse Practitioner; ADMIT Physician Assistant
DX: N39.0 Urinary tract infection, site not specified (principal); R53.1 Weakness; N17.9 Acute kidney failure, unspecified; I10 Essential (primary) hypertension; E78.5 Hyperlipidemia, unspecified; E11.9 Type 2 diabetes mellitus without complications; M25.552 Pain in left hip; R53.81 Other malaise; W18.30XA Fall on same level, unspecified, initial encounter; Z79.899 Other long term (current) drug therapy; Z79.84 Long term (current) use of oral hypoglycemic drugs; Z79.82 Long term (current) use of aspirin
CPT/HCPCS: G0378; J0692; J0696; J1650; J7030

== ENCOUNTER 2023-11-16 09:10 | Outpatient (RCR) | payer MEDICARE, BC ==
[~2023-11-16 09:10] MED LIST changes: +MACROBID 1100 MG/CAP PO; +METFORMIN ER500 MG PO
== END 2023-11-23 12:44 | disposition home or self-care (01) ==
LOC: OPPGERO 09:10
DX: F33.1 Major depressive disorder, recurrent, moderate (principal); F41.1 Generalized anxiety disorder; F43.10 Post-traumatic stress disorder, unspecified
CPT/HCPCS: C7903; G0410

== ENCOUNTER 2024-04-18 09:26 | Emergency (ER) | payer MEDICARE, BC ==
[~2024-04-18] VITALS: Ht 152.4 cm; Wt 90.8 kg
[2024-04-18] MEDS ORDERED: NATEGLINIDE120 MG PO (09:50)
[2024-04-18] MEDS ORDERED: ALLERGY RELIEF10 M2 PO (09:50)
[2024-04-18] MEDS ORDERED: FLUTICASONE P15.8 ML NS (11:32)
[2024-04-18] MEDS ORDERED: ALLER-TEC10 MG PO (11:32)
[2024-04-18] MEDS ORDERED: BENZONATATE200 MG PO (11:32)
[2024-04-18 12:05] VITALS: BP 160/82
== END 2024-04-18 12:05 | disposition home or self-care (01) ==
LOC: ED 09:26
DX: U07.1 COVID-19 (principal); J10.1 Influenza due to other identified influenza virus with other respiratory manifestations; Z95.5 Presence of coronary angioplasty implant and graft; Z79.82 Long term (current) use of aspirin